=== PATIENT | male | born 1990 | race Caucasian/White ===

== ENCOUNTER 2016-07-20 15:40 | Emergency (ER) | payer OTHER | END 2016-07-20 17:27 | disposition home or self-care (01) | LOC: ER 15:40 | DX: S02.2XXB Fracture of nasal bones, initial encounter for open fracture (principal); S01.21XA Laceration without foreign body of nose, initial encounter; Z23 Encounter for immunization; Z87.442 Personal history of urinary calculi; W22.8XXA Striking against or struck by other objects, initial encounter; Y92.69 Other specified industrial and construction area as the place of occurrence of the external cause; Y99.0 Civilian activity done for income or pay | CPT/HCPCS: 90471 ==